=== PATIENT | female | born 1965 | race Caucasian/White ===

== ENCOUNTER 2021-08-25 21:57 | Inpatient (IN) | payer BC, SELFPAY ==
--- NOTE | ~2021-08-25 | CT_ITS ---
EXAMINATION: CT SOFT TISSUE NECK WITH CONTRAST CLINICAL INFORMATION: Indurated chain/neck status post incision drainage COMPARISON: None TECHNIQUE: Following the intravenous administration of 100 mL of Omnipaque 350 intravenous contrast, helical imaging was performed in the axial plane with generation of coronal and sagittal reformatted images. This CT examination was performed using dose optimization techniques as appropriate, variously including the following: *Automated exposure control *Adjustment of mA and/or kV according to patient size (this includes techniques or standardized protocols for targeted exams where dose is matched to indication/reason for exam; i.e. extremities or head) *Use of iterative reconstruction technique DLP: 596 mGy-cm FINDINGS: There is soft tissue swelling anterior to the left mental protuberance of the mandible, where there is associated incision. Subjacent to the incision, is a collection of fluid or phlegmon anterior to the mental protuberance measuring 1.9 x 1.1 x 1.1 cm. The underlying mandible shows no periosteal reaction, cortical destruction or intramedullary lucency or sclerosis to suggest osteomyelitis. Adjacent reactive submental lymph node measures 8 mm short axis. No cervical lymphadenopathy by size criteria. The parotid glands are homogeneous in attenuation. The submandibular glands are normal. No contour abnormality or pathologic enhancement is seen within the oral cavity or pharyngeal mucosal space. The laryngeal structures are normal. The parapharyngeal fat is preserved. The carotid sheath vasculature opacify normally. No extra mucosal soft tissue mass. No retropharyngeal fluid collection is seen. The thyroid gland is normal. The superior mediastinum is unremarkable. The lung apices are clear. The mastoid air cells and visualized portions of the paranasal sinuses are well-aerated. The temporomandibular joints are normal. No periapical disease is identified. No osseous abnormalities are seen. The imaged portions of the brain parenchyma are unremarkable. CT/CT soft tissue neck w con IMPRESSION: There is soft tissue swelling and a small abscess or phlegmon immediately anterior to the mental protuberance of the mandible, underlying the patient's incision in this location. No evidence of osteomyelitis. No deep space infection.
[2021-08-25 22:30] VITALS: BP 154/75; PULSE 91; RESP 18; TEMP 37.1; O2SAT 98; BMI 29.9
[2021-08-26] VITALS (14 sets, daily range): BP systolic 142–200; BP diastolic 81–112; PULSE 85–99; RESP 16–20; TEMP 36–37.1; O2SAT 97–98
--- NOTE | 2021-08-26 | ECG_ITS ---
Test Reason : QT CHECK Blood Pressure : / mmHG Vent. Rate : 096 BPM Atrial Rate : 096 BPM P-R Int : 168 ms QRS Dur : 096 ms QT Int : 372 ms P-R-T Axes : 051 006 -03 degrees QTc Int : 469 ms Normal sinus rhythm Nonspecific ST abnormality Borderline ECG No previous ECGs available Referred By: Bakari Bentley Electronically Signed By:MICHEAL FERRELL MD
[2021-08-26] MEDS: Ketorolac Tromethamine 15 MG/ML VIAL 30 MG IVPUSH (02:32)
[2021-08-26] MEDS: Morphine Sulfate 4 MG/ML CARTRIDGE IVPUSH ×3 (02:33→07:55)
[2021-08-26] MEDS: cefTRIAXone sodium 1 GM in 0.9 % Sodium Chloride 50 ML IV (02:33)
[2021-08-26] MEDS: 0.9 % Sodium Chloride 1,000 ML 999 ML IV (02:34)
[2021-08-26 02:36] LABS: Basophils Percent Auto 0.2 % (0-2); Eosinophils Absolute Auto 0.1 X10*3/uL (0.0-0.4); Eosinophils Percent Auto 0.9 % (0-4); Hematocrit 37.7 % (37-47); Hemoglobin 12.5 g/dl (12.0-16.0); Imm Gran Abs Auto 0.07 X10*3/uL (0.00-0.03); Imm Gran Pct Auto 0.5 % (0.0-0.4); Lymphocytes Absolute Auto 1.7 X10*3/uL (1.2-4.9); Lymphocytes Percent Auto 11.3 % (20-40); MANUAL DIFF FLAG NO; Mean Corpuscular HGB Conc 33.2 g/dl (31.0-35.0); Mean Corpuscular Hemoglobin 31.8 pg (27.0-33.0); Mean Corpuscular Volume 95.9 fL (80-98); Monocytes Percent Auto 6.6 % (2-11); Neutrophils Percent Auto 80.5 % (45-73); Platelet Count 322 X10*3/uL (160-400); Red Blood Count 3.93 X10*6/uL (4.20-5.50); Red Cell Distribution Width 13.9 % (11.0-16.0); White Blood Count 14.9 X10*3/uL (4.8-10.8)
[2021-08-26 02:49] LABS: COVID-19 Test Negative (Negative)
[2021-08-26 02:49] LABS: Lactic Acid 0.7 mmol/L (0.5-2.0)
[2021-08-26 02:53] LABS: Alanine Aminotransferase 37 U/L (0-31); Albumin Level 4.1 g/dL (3.5-5.0); Alkaline Phosphatase 127 U/L (39-117); Anion Gap 13 (12-20); Aspartate Amino Transferase 29 U/L (5-31); Bilirubin Total 0.3 mg/dL (0.0-1.0); Blood Urea Nitrogen 9 mg/dL (9-16); C Reactive Protein 20.12 mg/dL (< or = 0.50); Calcium 9.5 mg/dL (8.4-10.2); Carbon Dioxide 23 mmol/L (22-29); Chloride 110 mmol/L (96-108); Creatinine Clr Calc Pharmacy 88.7; Estimated Glomerular Filt Rate > 60; Glucose Random 100 mg/dL (60-115); Sodium 142 mmol/L (135-145); Total Protein 6.6 g/dL (6.5-8.0)
[2021-08-26] MEDS: vancomycin HCL 1,000 MG in 0.9 % Sodium Chloride 250 ML 270 MG IV ×2 (03:10→13:11)
[2021-08-26] MEDS: Lidocaine HCl 1 % MPF 5 ML VIAL INFILTRATI ×2 (03:10)
[2021-08-26 03:14] LABS: Erythrocyte Sedimentation Rate 40 MM/HR (0-20)
--- NOTE | 2021-08-26 03:31 | ED_ITS ---
HPI - Extremity Problem General Chief complaint: Extremity Injury, Upper Stated complaint: Red Inflamed skin Time Seen by Provider: 08/26/21 01:44 Source: patient Mode of arrival: ambulatory Limitations: no limitations History of Present Illness HPI Narrative: 56-year-old female who presents emergency department for evaluation of cellulitis to her chin. The patient states she had a pimple on her chin that she popped and squeezed on , approximately 5 days prior to evaluation. She was seen in urgent care clinic and started on cephalexin. She states that her redness and swelling for chin is gotten progressively worse. She denied fever or chills but states that she has been feeling very fatigued. He denied myalgias or arthralgias. She denied chest pain, shortness of breath or cough. She denied headache, nausea, vomiting or weakness. She states that the pain in her chin is a constant, throbbing sensation which is 10/10 at its worst. Related Data Allergies Allergy/AdvReac Type Severity Reaction Status Date / Time No Known Allergies Allergy Unverified 08/01/20 19:26 [No Known Allergies*] Review of Systems Review of Systems: Yes all other systems are reviewed and are negative [facility] Past Medical History [facility] Narrative: Past medical history: Hypertension past surgical history: None. Social history: She denies tobacco use. She denies alcohol use. She occasionally smokes marijuana. Social History Social History Advance Directives: No Patient : No Physical Exam Vital Signs: Vital Signs: Last Vital Signs Temp 98.7 F 08/26/21 02:38 Pulse 87 08/26/21 06:09 Resp 16 08/26/21 06:09 BP 145/91 H 08/26/21 06:09 Pulse Ox 97 08/26/21 03:56 Body Mass Index 29.9 Const: General: cooperative and no acute distress Orientation/consciousness: oriented to person and oriented to place Limitations: no limitations HENMT: Other: The patient has a large area erythema and swelling of her chin measuring approximately 5 cm x 4 cm the air is purulent discharge coming from the skin, the skin is mainly indurated with a slight area of flocculence over the area that is draining pus. The erythema is warm to touch and does not starla with pressure. Ears: external ears normal General nose exam: Normal external nose present Mouth: Normal oral and palatal mucosa present Throat: Yes posterior oropharynx normal Eyes: General: appearance normal, both eyes and all related structures Pupils: Equal, round and reactive pupils present Neck: Neck: Yes normal visual inspection, Yes no lymphadenopathy, Yes trachea midline and Yes supple Chest: Chest palpation & inspection: normal inspection of the chest and normal palpation of entire chest wall Resp: Effort & Inspection: normal respiratory effort and able to speak in complete sentences Auscultation: clear to auscultation bilaterally Cardio: Rate: regular rate Rhythm: regular rhythm Heart sounds: S1 normal heart sound present, S2 normal heart sound present and no murmurs GI: Inspection: Yes normal to inspection Palpation (GI): Soft to palpation, nontender and no guarding Auscultation: normal bowel sounds : General: Yes no CVA tenderness Back/Spine/Pelvis: Back: no CVA tenderness Skin: General skin exam: no rashes or lesions noted Neuro: General: oriented to person and oriented to place Cranial nerves: Yes CN's II-XII intact bilaterally and Yes Equal, round and reactive pupils present Cognition (Neuro): normal cognition Motor exam (neuro): 5/5 motor strength present throughout Extrem: General: Yes normal to inspection Psych: Appearance: grossly normal Speech and movement: Normal speech and movement present Affect: normal affect Attitude: cooperative Thought process: Normal thought process present Thought content: Normal thought content present Course Course Course Narrative: 56-year-old female who presents emergency department for evaluation of cellulitis of the chin that occurred secondary to her popping a pimple on her chin 5 days prior . She was seen in urgent care clinic and started on cephalexin with no improvement of her symptoms. Vital signs reveal that she was afebrile, she was hypertensive with a blood pressure of 154/75. Examination did reveal significant cellulitis of her chin, mainly the areas indurated but there was a small area flocculence which I incised and drained, only small amount of a purulent material was expressed from the incised wound. I did explore the incised area with hemostats and was not able to get more pus out of the wound. I believe that the majority of the chin is indurated secondary to the cellulitis. The patient was treated with ceftriaxone 1 g IV and vancomycin 1000 mg IV. She did receive Toradol 30 mg IV and morphine 4 mg IV x2. I will discuss the patient's presentation with the covering hospitalist. 0521: I did discuss patient's presentation with the covering hospitalist, Dr. Bentley and the patient will be admitted to the hospital service. I will obtain a CT scan of the neck which will involve that stuart to make sure that there is no further abscess. 0724: CT scan of the neck including the chin revealed a small abscess or phlegmon immediately anterior to the mental protuberance of the mandible. I did discuss this with Dr. España our interventional radiologist and he states in general, he does not do procedures on the face. I discussed the patient's presentation with our on-call general surgeon, Dr. Gilliland. He evaluated the patient and felt that the collection of fluid may be reactionary and not purulence. He recommended that the patient be treated with IV antibiotics and he will follow the patient with the hospitalist determine if the patient needs surgical intervention if there is no improvement. I will discuss this with the covering hospitalist. MDM - Extremity (Nontraumatic) Lab Data Result diagrams: 08/26/21 02:25 08/26/21 02:25 Labs: Lab Results 08/26/21 08/26/21 08/26/21 Range/Units 02:25 02:25 02:25 WBC 14.9 H (4.8-10.8) X10*3/uL RBC 3.93 L (4.20-5.50) X10*6/uL Hgb 12.5 (12.0-16.0) g/dl Hct 37.7 (37-47) % MCV 95.9 (80-98) fL MCH 31.8 (27.0-33.0) pg MCHC 33.2 (31.0-35.0) g/dl RDW 13.9 (11.0-16.0) % Plt Count 322 (160-400) X10*3/uL MPV 9.0 L (9.4-12.3) fL Immature Gran % (Auto) 0.5 H (0.0-0.4) % Neut % (Auto) 80.5 H (45-73) % Lymph % (Auto) 11.3 L (20-40) % [place] % (Auto) 6.6 (2-11) % Eos % (Auto) 0.9 (0-4) % Baso % (Auto) 0.2 (0-2) % Lymph # (Auto) 1.7 (1.2-4.9) X10*3/uL [place] # (Auto) 1.0 (0.1-1.2) X10*3/uL Eos # (Auto) 0.1 (0.0-0.4) X10*3/uL Baso # (Auto) 0.0 (0.0-0.2) X10*3/uL Abs Immat Gran (auto) 0.07 H (0.00-0.03) X10*3/uL Absolute Neuts (auto) 12.0 H (2.0-8.3) X10*3/uL Absolute Nucleated RBC 0.000 (0.0-0.012) X10*3/uL Nucleated RBC % (auto) 0.0 (0.0-0.2) /100WBC ESR (0-20) MM/HR Sodium 142 (135-145) mmol/L Potassium 4.0 (3.3-5.1) mmol/L Chloride 110 H (96-108) mmol/L Carbon Dioxide 23 (22-29) mmol/L Anion Gap 13 (12-20) BUN 9 (9-16) mg/dL Creatinine 0.73 (0.5-1.4) mg/dL Estim Creat Clear Calc 88.7 Estimated GFR > 60 Random Glucose 100 (60-115) mg/dL Lactic Acid 0.7 (0.5-2.0) mmol/L Calcium 9.5 (8.4-10.2) mg/dL Total Bilirubin 0.3 (0.0-1.0) mg/dL AST 29 (5-31) U/L ALT 37 H (0-31) U/L Alkaline Phosphatase 127 H (39-117) U/L C-Reactive Protein 20.12 H (< or = 0.50) mg/dL Total Protein 6.6 (6.5-8.0) g/dL Albumin 4.1 (3.5-5.0) g/dL COVID-19 ([place]) (Negative) COVID-19 Clin Com 08/26/21 08/26/21 Range/Units 02:26 02:26 WBC (4.8-10.8) X10*3/uL RBC (4.20-5.50) X10*6/uL Hgb (12.0-16.0) g/dl Hct (37-47) % MCV (80-98) fL MCH (27.0-33.0) pg MCHC (31.0-35.0) g/dl RDW (11.0-16.0) % Plt Count (160-400) X10*3/uL MPV (9.4-12.3) fL Immature Gran % (Auto) (0.0-0.4) % Neut % (Auto) (45-73) % Lymph % (Auto) (20-40) % [place] % (Auto) (2-11) % Eos % (Auto) (0-4) % Baso % (Auto) (0-2) % Lymph # (Auto) (1.2-4.9) X10*3/uL [place] # (Auto) (0.1-1.2) X10*3/uL Eos # (Auto) (0.0-0.4) X10*3/uL Baso # (Auto) (0.0-0.2) X10*3/uL Abs Immat Gran (auto) (0.00-0.03) X10*3/uL Absolute Neuts (auto) (2.0-8.3) X10*3/uL Absolute Nucleated RBC (0.0-0.012) X10*3/uL Nucleated RBC % (auto) (0.0-0.2) /100WBC ESR 40 H (0-20) MM/HR Sodium (135-145) mmol/L Potassium (3.3-5.1) mmol/L Chloride (96-108) mmol/L Carbon Dioxide (22-29) mmol/L Anion Gap (12-20) BUN (9-16) mg/dL Creatinine (0.5-1.4) mg/dL Estim Creat Clear Calc Estimated GFR Random Glucose (60-115) mg/dL Lactic Acid (0.5-2.0) mmol/L Calcium (8.4-10.2) mg/dL Total Bilirubin (0.0-1.0) mg/dL AST (5-31) U/L ALT (0-31) U/L Alkaline Phosphatase (39-117) U/L C-Reactive Protein (< or = 0.50) mg/dL Total Protein (6.5-8.0) g/dL Albumin (3.5-5.0) g/dL COVID-19 (GER[place]) Negative (Negative) COVID-19 Clin Com See Note Procedures Abscess I/D Site: face (Change) Local Anesthetic: lidocaine 1% Amount of anesthesia used (mL): 10 Technique: incised with blade Amount of fluid expressed (mL): 5 Sent for culture/gram staining?: Yes Irrigation: No Packing used?: [email or web address] Discharge Plan Discharge Clinical Impression: Cellulitis and abscess of face, Encounter for incision and drainage procedure Patient Disposition: Admitted As Inpatient
--- NOTE | 2021-08-26 05:36 | PC.NURSE ---
pt neck and jaw have been marked with a skin marker. redness and swelling have been improving slowly. pt lip did expand to the entire lower lip swelling but now is at half, greater on the left side of the mouth. pt is able to swallow and manage her airway with no difficulty. pt made aware of the need for a ct of her face.
[2021-08-26] MEDS: iohexoL 350 MG/ML 100 ML INFUS..BTL 60 ML IV (05:50)
--- NOTE | 2021-08-26 08:55 | PM.CNGS ---
History of Present Illness Consult details Consult date: 08/26/21 Narrative: 56-year-old female patient presenting with pain, swelling, and redness of the chin. This apparently started as a small pustule which she picked it gradually increased in size and pain. She presents to the emergency department and was noted to have an area of redness located at the chin. Incision and drainage procedure was performed by the emergency department physician. A small amount of purulent discharge was evacuated. Subsequent CT of the head was suggestive of an underlying abscess located over the chin to below the incision. Surgical consultation was requested for possible repeat incision and Drainage. Review of Systems Review of Systems: Yes all other systems are reviewed and are negative Constitutional: Constitutional: Reports chills and Reports fever(s) Eyes: Eyes: Reports no additional eye complaints ENT: Reports as per HPI Cardiovascular: Cardiovascular: Reports no additional cardiovascular complaints Respiratory: Respiratory: Reports no additional respiratory complaints Gastrointestinal: Gastrointestinal: Reports no additional gastrointestinal complaints PMFSH Social History Social History Advance Directives: No Patient : No Meds Allergies Allergy/AdvReac Type Severity Reaction Status Date / Time No Known Allergies Allergy Unverified 08/01/20 19:26 [No Known Allergies*] Physical Exam Vital Signs: Vital Signs: Last Vital Signs Temp 98.7 F 08/26/21 02:38 Pulse 87 08/26/21 06:09 Resp 16 08/26/21 06:09 BP 145/91 H 08/26/21 06:09 Pulse Ox 97 08/26/21 03:56 Body Mass Index 29.9 Const: General: healthy appearing, comfortable and no acute distress Nutritional Appearance: well nourished Orientation/consciousness: patient oriented x3 Limitations: no limitations HENMT: Face images: 1. area of swelling and redness midline chin, site is very inflamed but no definite fluctuance is palpable. No evidence of undrained abscess. Neck: Neck: Yes no lymphadenopathy Resp: Effort & Inspection: normal respiratory effort Auscultation: clear to auscultation bilaterally GI: Inspection: Yes normal to inspection Skin: Other: abscess as noted above she will, no other suspicious lesions Neuro: General: patient oriented x3 Extrem: General: Yes no clubbing, cyanosis or edema Results Labs Result diagrams: 08/26/21 02:25 08/26/21 02:25 Labs: Abnormal lab results 10/11/0408/26/21 08/26/21 Range/Units 02:25 02:25 02:26 WBC 14.9 H (4.8-10.8) X10*3/uL RBC 3.93 L (4.20-5.50) X10*6/uL MPV 9.0 L (9.4-12.3) fL Immature Gran % (Auto) 0.5 H (0.0-0.4) % Neut % (Auto) 80.5 H (45-73) % Lymph % (Auto) 11.3 L (20-40) % Abs Immat Gran (auto) 0.07 H (0.00-0.03) X10*3/uL Absolute Neuts (auto) 12.0 H (2.0-8.3) X10*3/uL ESR 40 H (0-20) MM/HR Chloride 110 H (96-108) mmol/L ALT 37 H (0-31) U/L Alkaline Phosphatase 127 H (39-117) U/L C-Reactive Protein 20.12 H (< or = 0.50) mg/dL Short CBC 08/26/21 Range/Units 02:25 WBC 14.9 H (4.8-10.8) X10*3/uL Hgb 12.5 (12.0-16.0) g/dl Hct 37.7 (37-47) % Plt Count 322 (160-400) X10*3/uL BMP 08/26/21 02:25 Sodium 142 Potassium 4.0 Chloride 110 H Carbon Dioxide 23 BUN 9 Creatinine 0.73 Calcium 9.5 Liver Function 08/26/21 Range/Units 02:25 Total Bilirubin 0.3 (0.0-1.0) mg/dL AST 29 (5-31) U/L ALT 37 H (0-31) U/L Alkaline Phosphatase 127 H (39-117) U/L Albumin 4.1 (3.5-5.0) g/dL All other labs normal. Assessment and Plan (1) Encounter for incision and drainage procedure: Status: Acute (2) Cellulitis and abscess of face: Status: Acute are quite paranoid 56-year-old female patient presenting with a abscess of the chin status post incision and drainage. Patient is being admitted to the hospital service for IV antibiotics. It does appear that any further incision and drainage is required at this time although I will continue to monitor during her hospitalization. If there is no improvement with the IV antibiotics 1 option would include operative exploration in the OR. I discussed this with the patient she agrees with the plan. Procedures Date of Service Date of Service: 08/26/21
[2021-08-26] MEDS: Magnesium Hydrox/Alum Hydrox 30 ML ORAL.SUSP PO (10:56)
--- NOTE | 2021-08-26 11:21 | PHA.PROG ---
Admission Date/Time: Indication: Skin Infection Weight in k.647 kg Adjusted body weight in K.85 Mather body weight in K Serum Creatinine - Last 168 Hours 08/26/21 02:25 Creatinine 0.73 Estimated CrCl and GFR - Last 168 Hours 08/26/21 02:25 Estim Creat Clear Calc 88.7 Estimated GFR > 60 Vancomycin Loading Dose: N/A Current Vancomycin Dosing Regimen: 1000 mg Q12H Date and Time for next Vancomycin Level to be drawn: 08/27 @ 1100 Pharmacist Comments on Vancomycin Plan: Vanco 1000 mg given in the ED 08/26 @ 0310. Given second dose of 1000 mg in 8 hr at 1200 to create a LD. Start 1000 mg on 08/27 @ 1200. Expected AUC 480 with a trough of 15 Troguh will be drawn prior to 4th dose Pharmacy will monitor SCr daily, and adjust if necessary Mirna David, Leticia Vancomycin dosing will take advantage of [employer] as a clinical decision support tool that uses Bayesian modeling to calculate individual patient's pharmacokinetic parameters and forecast the patient's drug concentration time course with the target goal AUC 24 range of 400 - 600 mg/L/hr.
[2021-08-26] MEDS: Piperacillin Sodium/Tazobactam 3.375 GM in 0.9 % Sodium Chloride 50 ML IV ×2 (11:33→18:47)
--- NOTE | 2021-08-26 11:51 | P.HPHOSP_ITS ---
History of Present Illness Date of Service: 08/26/21 56-year-old female who presents emergency department for evaluation of cellulitis to her chin.? The patient states she had a pimple on her chin that she popped and squeezed on , approximately 5 days prior to evaluation.? She was seen in urgent care clinic and started on cephalexin.? She states that her redness and swelling for chin is gotten progressively worse.? She denied f ever or chills but states that she has been feeling very fatigued.? He denied myalgias or arthralgias.? She denied chest pain, shortness of breath or cough.? She denied headache, nausea, vomiting or weakness.? She states that the pain in her chin is a constant, throbbing sensation which is 10/10 at its worst.? ER course: White count 14 9; I and D done by ER MD. started on IV ceftriaxone and vanco mycin. Morphine for pain management Review of Systems Review of Systems: Denies chest pain Denies shortness of breath Denies nausea vomiting diarrhea PMFSH Pertinent family history: . Social History Advance Directives: No Patient : No Meds Allergies Allergy/AdvReac Type Severity Reaction Status Date / Time No Known Allergies Allergy Unverified 08/01/20 19:26 [No Known Allergies*] Active Medications: Current Medications Enoxaparin Sodium (Enoxaparin Sodium 40 Mg/0.4 Ml Syringe) 40 mg SUBCUT Q24H CURRY Piperacillin Sod/Tazobactam (Sod 3.375 gm/ Sodium Chloride) 50 mls @ 100 mls/hr IV RQ6H CURRY Last Admin: 08/26/21 11:33 Dose: 100 mls/hr Documented by: Vancomycin HCl 1,000 mg/ (Sodium Chloride) 270 mls @ 270 mls/hr IV Q12H CURRY Magnesium Hydroxide (Milk Of Magnesia 30 Ml Oral.Susp) 30 ml PO DAILY PRN PRN Reason: Constipation Melatonin (Melatonin 3 Mg Tablet) 6 mg PO BEDTIME PRN PRN Reason: Insomnia Morphine Sulfate (Morphine Sulfate 4 Mg/Ml Cartridge) 4 mg IVPUSH Q4H PRN; Protocol PRN Reason: Pain, Severe (Pain Scale 7-10) Oxycodone HCl (Oxycodone Hcl Immed Release 5 Mg Tablet) 5 mg PO Q6H PRN PRN Reason: Pain, Severe (Pain Scale 7-10) Pharmacy Consult (Consult Rx Vancomycin Dosing) 1 each MISCELLANE DAILY PRN PRN Reason: Consult order Sodium Chloride (0.9 % Sodium Chloride Flush 3 Ml Syringe) 3 ml IVFLUSH QSHIFT CURRY Physical Exam Vital Signs and Narrative: Vital Signs: Last Vital Signs Temp 98.7 F 08/26/21 02:38 Pulse 87 08/26/21 06:09 Resp 16 08/26/21 06:09 BP 145/91 H 08/26/21 06:09 Pulse Ox 97 08/26/21 03:56 Body Mass Index 29.9 Const: Other: Awake alert oriented x3 no acute distress HENMT: Other: 5 x 4 cm erythematous area to touch in; status post I&D drain in. Erythema somewhat improved since drainage given marked line Resp: Other: Clear to auscultation all cole. No rales rhonchi wheezes Cardio: Other: No S4; positive S1-S2; no S3 murmurs rubs gallops GI: Other: Soft nontender nondistended normoactive bowel sounds. There is no peritoneal signs Neuro: Other: Cranial nerves 2-12 grossly intact as tested. Motor 5/5 all extremities sensation intact cognition is normal Extrem: Other: No edema bilaterally Results Labs CBC and Chem 7: 08/26/21 02:25 08/26/21 02:25 Labs: Laboratory Results - last 24 hr 08/26/21 08/26/21 08/26/21 02:25 02:25 02:25 MCV 95.9 MCH 31.8 MCHC 33.2 RDW 13.9 Plt Count 322 MPV 9.0 L Immature Gran % (Auto) 0.5 H Neut % (Auto) 80.5 H Lymph % (Auto) 11.3 L [facility] % (Auto) 6.6 Eos % (Auto) 0.9 Baso % (Auto) 0.2 Lymph # (Auto) 1.7 [facility] # (Auto) 1.0 Eos # (Auto) 0.1 Baso # (Auto) 0.0 Abs Immat Gran (auto) 0.07 H Absolute Neuts (auto) 12.0 H Absolute Nucleated RBC 0.000 Nucleated RBC % (auto) 0.0 ESR Anion Gap 13 Estim Creat Clear Calc 88.7 Estimated GFR > 60 Random Glucose 100 Lactic Acid 0.7 Calcium 9.5 Total Bilirubin 0.3 AST 29 ALT 37 H Alkaline Phosphatase 127 H C-Reactive Protein 20.12 H Total Protein 6.6 Albumin 4.1 COVID-19 ([place]) COVID-19 Clin Com 08/26/21 08/26/21 02:26 02:26 MCV MCH MCHC RDW Plt Count MPV Immature Gran % (Auto) Neut % (Auto) Lymph % (Auto) [facility] % (Auto) Eos % (Auto) Baso % (Auto) Lymph # (Auto) [facility] # (Auto) Eos # (Auto) Baso # (Auto) Abs Immat Gran (auto) Absolute Neuts (auto) Absolute Nucleated RBC Nucleated RBC % (auto) ESR 40 H Anion Gap Estim Creat Clear Calc Estimated GFR Random Glucose Lactic Acid Calcium Total Bilirubin AST ALT Alkaline Phosphatase C-Reactive Protein Total Protein Albumin COVID-19 ([place]) Negative COVID-19 Clin Com See Note Imaging Radiologist's Impressions: Impressions Soft Tissue Neck CT 08/26/21 05:17 IMPRESSION: There is soft tissue swelling and a small abscess or phlegmon immediately anterior to the mental protuberance of the mandible, underlying the patient's incision in this location. No evidence of osteomyelitis. No deep space infection. Assessment and Plan (1) Cellulitis and abscess of face: Status: Acute 56-year-old female presents with cellulitis on chin. States she had a pimple on her chin which she popped 5 days ago. She was seen after 2 days in urgent care and placed on Keflex. She states that her redness and swelling continued to worsen in the absence of fever and chills. She presented to the emergency room (see initial photo) with same; I and D was done and erythema was marked with a marker. At this point in time shoulder be admitted for IV therapy and pain control 1. Facial cellulitis IV Zosyn/vancomycin as ordered. Will prescribe oxycodone for pain with morphine for breakthrough. Appreciate surgical consult; no indication for further drainage. Per note will follow if no improvement on IV antibiotics question OR for exploration and drainage. 2. Hypertension Continue outpatient therapies and adjust as indicated 3. GERD Continue omeprazole 4. DVT prophylaxis: Lovenox Full code Quality Stroke Does the patient have a stroke diagnosis?: No VTE Prior VTE?: No VTE Risk Level:: Medical - moderate - high VTE Device Contraindication: Treatment Not Indicated VTE Drug Contraindication: N/A - Med Ordered
--- NOTE | 2021-08-26 12:15 | PHA.MEDREC ---
Pharmacy Consult ? Medication Reconciliation Pharmacy has completed the medication reconciliation. There are no remarkable issues for provider's attention. Mirna David, TraeD
[2021-08-26] MEDS: oxyCODONE HCl Immed Release 5 MG TABLET PO (13:14)
[2021-08-26] MEDS: ondansetron HCL 4 MG/2 ML VIAL IVPUSH (13:33)
--- NOTE | 2021-08-26 13:34 | PC.NURSE ---
pt vomiting, IV zofran given, pain medication held at this time.
--- NOTE | 2021-08-26 18:53 | PC.NURSE ---
pt is nauseous/vomiting, diaphoretic with chills, HR in the 90s, and BP 199/112. Oral temp is 98.5. Pt's redness on her chin is outside of the markings done last night. MD fuentes chapa texted for orders.
--- NOTE | 2021-08-26 20:38 | PC.NURSE ---
This nurse took over care of patient at 1900, Dr. holden was notified that the patient did not get her lisopril by previous nurse, no new orders given at this time. will contniue to monitor.
[2021-08-26] MEDS: lisinopriL 10 MG TABLET PO (21:33)
[2021-08-26] MEDS: Cyclobenzaprine HCl 10 MG TABLET PO (21:33)
--- NOTE | 2021-08-26 21:34 | PC.NURSE ---
patient alert to self, meds crushed given in pudding, nicole cath patient draining, will continue to monitor.
--- NOTE | 2021-08-26 21:35 | PC.NURSE ---
patient medicated per order
--- NOTE | 2021-08-26 21:55 | PC.NURSE ---
patient c/o facial pain but is refusing pain meds at this time.
--- NOTE | 2021-08-26 22:26 | PC.NURSE ---
report given, repeat vitals being obtained and pt to be transported by tech to the floor
[2021-08-27] MEDS: Piperacillin Sodium/Tazobactam 3.375 GM in 0.9 % Sodium Chloride 50 ML IV ×5 (00:18→23:07)
[2021-08-27] MEDS: ondansetron HCL 4 MG/2 ML VIAL IVPUSH ×2 (00:48→12:24)
[2021-08-27] MEDS: 0.9 % Sodium Chloride Flush 3 ML SYRINGE IVFLUSH ×4 (01:15→23:08)
[2021-08-27] MEDS: vancomycin HCL 1,000 MG in 0.9 % Sodium Chloride 250 ML 270 MG IV (01:15)
[2021-08-27 03:44] VITALS: BP 140/67; PULSE 97; RESP 18; TEMP 37.2; O2SAT 96
[2021-08-27] MEDS: Omeprazole 20 MG CAPSULE.DR PO ×2 (05:50→18:28)
[2021-08-27] MEDS: Acetaminophen 325 MG TABLET 650 MG PO ×2 (05:50→21:47)
[2021-08-27 06:53] LABS: MANUAL DIFF FLAG NO
[2021-08-27 06:57] LABS: Basophils Percent Auto 0.2 % (0-2); Eosinophils Absolute Auto 0.1 X10*3/uL (0.0-0.4); Eosinophils Percent Auto 0.5 % (0-4); Hematocrit 35.4 % (37-47); Hemoglobin 11.8 g/dl (12.0-16.0); Imm Gran Abs Auto 0.03 X10*3/uL (0.00-0.03); Imm Gran Pct Auto 0.3 % (0.0-0.4); Lymphocytes Absolute Auto 1.2 X10*3/uL (1.2-4.9); Lymphocytes Percent Auto 12.1 % (20-40); Mean Corpuscular HGB Conc 33.3 g/dl (31.0-35.0); Mean Corpuscular Hemoglobin 31.6 pg (27.0-33.0); Mean Corpuscular Volume 94.7 fL (80-98); Mean Platelet Volume 8.8 fL (9.4-12.3); Monocytes Absolute Auto 0.5 X10*3/uL (0.1-1.2); Monocytes Percent Auto 5.4 % (2-11); Neutrophils Absolute Auto 8.1 X10*3/uL (2.0-8.3); Neutrophils Percent Auto 81.5 % (45-73); Platelet Count 292 X10*3/uL (160-400); Red Blood Count 3.74 X10*6/uL (4.20-5.50); Red Cell Distribution Width 13.6 % (11.0-16.0)
[2021-08-27 07:08] VITALS: BP 145/90; PULSE 95; RESP 17; TEMP 36.4; O2SAT 98
[2021-08-27 07:15] LABS: Anion Gap 14 (12-20); Blood Urea Nitrogen 8 mg/dL (9-16); Carbon Dioxide 24 mmol/L (22-29); Chloride 106 mmol/L (96-108); Creatinine Clr Calc Pharmacy 109.7; Estimated Glomerular Filt Rate > 60; Glucose Random 107 mg/dL (60-115); Potassium 3.7 mmol/L (3.3-5.1); Sodium 140 mmol/L (135-145)
[2021-08-27 07:35] LABS: Calcium 8.6 mg/dL (8.4-10.2)
[2021-08-27] MEDS: lisinopriL 10 MG TABLET PO (08:30)
[2021-08-27] MEDS: Escitalopram Oxalate 10 MG TABLET PO (08:30)
[2021-08-27 11:41] LABS: Creatinine Clr Calc Pharmacy 109.7; Estimated Glomerular Filt Rate > 60
[2021-08-27 11:42] LABS: Vancomycin Trough 5.5 mcg/mL (10.0-20.0)
[2021-08-27 11:43] VITALS: BP 180/110; PULSE 95; RESP 19; TEMP 37; O2SAT 96
--- NOTE | 2021-08-27 12:02 | HO.PM.IMPN ---
Subjective Subjective Date of Service: 08/27/21 Interval History: cc: chin erythema, pain, swelling interval history: some drainage. still painful and erythematous Cardiovascular Cardiovascular: Reports no additional cardiovascular complaints Respiratory Respiratory: Reports no additional respiratory complaints Physical Exam Vital Signs: Vital Signs: Last Vital Signs Temp 98.6 F 08/27/21 11:43 Pulse 95 08/27/21 11:43 Resp 19 08/27/21 11:43 BP 180/110 H 08/27/21 11:43 Pulse Ox 96 08/27/21 11:43 Body Mass Index 29.9 General: AO X 3, no acute distress Resp: CTA bilateral, no accessory muscles used CVS: S1,S2,RRR GI: soft, non tender, non distended Neuro: motor grossly intact, alert Psych: appropriate affect, appropriate insight skin: chin ertyhematous, swollen, prulent drainage Objective Data Active Medications Cyclobenzaprine HCl (Cyclobenzaprine Hcl 10 Mg Tablet) 10 mg PO BEDTIME [facility] Last Admin: 08/26/21 21:33 Dose: 10 mg Documented by: JOSE ANTONIO Enoxaparin Sodium (Enoxaparin Sodium 40 Mg/0.4 Ml Syringe) 40 mg SUBCUT Q24H [facility] Last Admin: 08/26/21 13:34 Dose: Not Given Documented by: HONG Non-Admin Reason: Patient Refused Escitalopram Oxalate (Escitalopram Oxalate 10 Mg Tablet) 10 mg PO DAILY [facility] Last Admin: 08/27/21 08:30 Dose: 10 mg Documented by: BERNABE Piperacillin Sod/Tazobactam (Sod 3.375 gm/ Sodium Chloride) 50 mls @ 100 mls/hr IV RQ6H [facility] Last Infusion: 08/27/21 11:47 Dose: 100 mls/hr Documented by: BERNABE Vancomycin HCl 1,500 mg/ (Sodium Chloride) 500 mls @ 333.333 mls/hr IV Q12H [facility] Lisinopril (Lisinopril 10 Mg Tablet) 10 mg PO DAILY [facility]; Protocol Last Admin: 08/27/21 08:30 Dose: 10 mg Documented by: BERNABE Magnesium Hydroxide (Milk Of Magnesia 30 Ml Oral.Susp) 30 ml PO DAILY PRN PRN Reason: Constipation Melatonin (Melatonin 3 Mg Tablet) 6 mg PO BEDTIME PRN PRN Reason: Insomnia Morphine Sulfate (Morphine Sulfate 4 Mg/Ml Cartridge) 4 mg IVPUSH Q4H PRN; Protocol PRN Reason: Pain, Severe (Pain Scale 7-10) Omeprazole (Omeprazole 20 Mg Capsule.Dr) 20 mg PO BID@0630,1630 [facility] Last Admin: 08/27/21 05:50 Dose: 20 mg Documented by: MIMI Ondansetron HCl (Ondansetron Hcl 4 Mg/2 Ml Vial) 4 mg IVPUSH Q6H PRN PRN Reason: nausea Oxycodone HCl (Oxycodone Hcl Immed Release 5 Mg Tablet) 5 mg PO Q6H PRN PRN Reason: Pain, Severe (Pain Scale 7-10) Last Admin: 08/26/21 13:14 Dose: 5 mg Documented by: HONG Pharmacy Consult (Consult Rx Vancomycin Dosing) 1 each MISCELLANE DAILY PRN PRN Reason: Consult order Sodium Chloride (0.9 % Sodium Chloride Flush 3 Ml Syringe) 3 ml IVFLUSH [facility] Last Admin: 08/27/21 08:32 Dose: 3 ml Documented by: BERNABE Labs CBC & Chem 7: 08/27/21 06:43 08/27/21 11:03 Labs: Laboratory Results - last 24 hr 08/27/21 08/27/21 08/27/21 06:43 06:43 11:03 MCV 94.7 MCH 31.6 MCHC 33.3 RDW 13.6 Plt Count 292 MPV 8.8 L Immature Gran % (Auto) 0.3 Neut % (Auto) 81.5 H Lymph % (Auto) 12.1 L [place] % (Auto) 5.4 Eos % (Auto) 0.5 Baso % (Auto) 0.2 Lymph # (Auto) 1.2 [place] # (Auto) 0.5 Eos # (Auto) 0.1 Baso # (Auto) 0.0 Abs Immat Gran (auto) 0.03 Absolute Neuts (auto) 8.1 Absolute Nucleated RBC 0.000 Nucleated RBC % (auto) 0.0 Anion Gap 14 Estim Creat Clear Calc 109.7 109.7 Estimated GFR > 60 > 60 Random Glucose 107 Calcium 8.6 D Vancomycin Trough 08/27/21 11:03 MCV MCH MCHC RDW Plt Count MPV Immature Gran % (Auto) Neut % (Auto) Lymph % (Auto) [place] % (Auto) Eos % (Auto) Baso % (Auto) Lymph # (Auto) [place] # (Auto) Eos # (Auto) Baso # (Auto) Abs Immat Gran (auto) Absolute Neuts (auto) Absolute Nucleated RBC Nucleated RBC % (auto) Anion Gap Estim Creat Clear Calc Estimated GFR Random Glucose Calcium Vancomycin Trough 5.5 L Microbiology Microbiology Results: Microbiology 08/26/21 02:25 Blood Culture - Preliminary Blood - Venous No growth after 24 hours. 08/26/21 02:25 Blood Culture - Preliminary Blood - Venous No growth after 24 hours. 08/26/21 03:22 Gram Stain - Final Abscess Facial Assessment and Plan (1) Cellulitis and abscess of face: Status: Acute Assessment and Plan: 56-year-old female presented with cellulitis on chin.? States she had a pimple on her chin which she popped 5 days ptp.? She was seen after 2 days in urgent care and placed on Keflex.? She stated that her redness and swelling continued to worsen in the absence of fever and chills.? She presented to the emergency room (see initial photo) with same; I and D was done and erythema was marked with a marker.? admitted for IV therapy and pain control Facial cellulitis/abscess continue IV vanc, zosyn, pain control surgery following in case further drainage in OR required, follow up cultures, monitor vanc trough Hypertension lisinopril, elevated currently but likely due to naseasu, monitor for now GERD omeprazole DVT prophylaxis:? Lovenox ? ? Full code Quality Stroke Does the patient have a stroke diagnosis?: No VTE Prior VTE?: No VTE Risk Level:: Medical - moderate - high VTE Device Contraindication: Treatment Not Indicated VTE Drug Contraindication: N/A - Med Ordered
[2021-08-27] MEDS: vancomycin HCL 1,500 MG in 0.9 % Sodium Chloride 500 ML 333.33 MG IV ×2 (12:24→23:07)
[2021-08-27] MEDS: Enoxaparin Sodium 40 MG/0.4 ML SYRINGE SUBCUT (12:24)
[2021-08-27 14:05] VITALS: BP 174/88
--- NOTE | 2021-08-27 14:11 | PC.NURSE ---
At 1200 bp of 180/[address] Hurtado. Pt had just finishe dose o zosyn, She c/o feeling nauseous also diaphoretic. Medicated with zofran with effect. bp at 1410 was 174/88 large cuff
[2021-08-27 15:13] VITALS: BP 179/98; PULSE 72; RESP 18; TEMP 36.4; O2SAT 96
--- NOTE | 2021-08-27 15:23 | MHC.CM.PN ---
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 D/C PLAN: HOME SELF-CARE, [facility] WILL DRIVE SELF HOME
[2021-08-27 19:07] VITALS: BP 176/99; PULSE 79; RESP 18; TEMP 36.5; O2SAT 95
[2021-08-27] MEDS: Cyclobenzaprine HCl 10 MG TABLET PO (21:46)
[2021-08-27] MEDS: Melatonin 3 MG TABLET 6 MG PO (21:47)
[2021-08-28] VITALS (8 sets, daily range): BP systolic 153–193; BP diastolic 80–108; PULSE 77–92; RESP 14–18; TEMP 36.1–36.9; O2SAT 92–96
[2021-08-28] MEDS: Ketorolac Tromethamine 15 MG/ML VIAL IVPUSH (04:55)
[2021-08-28] MEDS: ondansetron HCL 4 MG/2 ML VIAL IVPUSH ×2 (04:55→12:04)
[2021-08-28] MEDS: Piperacillin Sodium/Tazobactam 3.375 GM in 0.9 % Sodium Chloride 50 ML IV (04:56)
[2021-08-28] MEDS: Omeprazole 20 MG CAPSULE.DR PO ×2 (04:56→15:45)
--- NOTE | 2021-08-28 06:05 | MHC.PIE ---
P: patient c/o headache & face pain, mild in nature - requesting tylenol. Does not want opiates. Patient chin bruised / scabbed. I: Dr Bentley made aware - ordered one time dose toradol - given to patient @ 8038 E: Patient reports medicated w/ good affect. Able to rest.
[2021-08-28 06:17] LABS: Hematocrit 35.4 % (37-47); Hemoglobin 11.8 g/dl (12.0-16.0); Mean Corpuscular HGB Conc 33.3 g/dl (31.0-35.0); Mean Corpuscular Hemoglobin 31.5 pg (27.0-33.0); Mean Corpuscular Volume 94.4 fL (80-98); Mean Platelet Volume 8.8 fL (9.4-12.3); Platelet Count 303 X10*3/uL (160-400); Red Blood Count 3.75 X10*6/uL (4.20-5.50); Red Cell Distribution Width 13.3 % (11.0-16.0); White Blood Count 8.9 X10*3/uL (4.8-10.8)
[2021-08-28 07:12] LABS: Anion Gap 16 (12-20); Blood Urea Nitrogen 13 mg/dL (9-16); Carbon Dioxide 23 mmol/L (22-29); Chloride 109 mmol/L (96-108); Creatinine Clr Calc Pharmacy 96.6; Estimated Glomerular Filt Rate > 60; Glucose Fasting 97 mg/dL (60-99); Potassium 3.9 mmol/L (3.3-5.1); Sodium 144 mmol/L (135-145)
[2021-08-28] MEDS: Escitalopram Oxalate 10 MG TABLET PO (08:52)
[2021-08-28] MEDS: lisinopriL 10 MG TABLET PO (08:52)
[2021-08-28] MEDS: Morphine Sulfate 4 MG/ML CARTRIDGE IVPUSH ×3 (08:55→23:22)
[2021-08-28] MEDS: vancomycin HCL 1,500 MG in 0.9 % Sodium Chloride 500 ML 333.33 MG IV ×2 (12:03→23:25)
[2021-08-28] MEDS: Enoxaparin Sodium 40 MG/0.4 ML SYRINGE SUBCUT (12:05)
--- NOTE | 2021-08-28 12:38 | P.PNIM_ITS ---
Subjective Subjective Date of Service: 08/28/21 Interval History: cc: chin erythema, pain, swelling interval history: still red and painful, but improved Cardiovascular Cardiovascular: Reports no additional cardiovascular complaints Respiratory Respiratory: Reports no additional respiratory complaints Physical Exam Vital Signs: Vital Signs: Last Vital Signs Temp 98.5 F 08/28/21 12:00 Pulse 83 08/28/21 12:00 Resp 18 08/28/21 12:00 BP 186/108 H 08/28/21 12:00 Pulse Ox 96 08/28/21 12:00 Body Mass Index 29.9 General: AO X 3, no acute distress Resp:? CTA bilateral, no accessory muscles used CVS: S1,S2,RRR GI: soft, non tender, non distended Neuro:? motor grossly intact, alert Psych: appropriate affect, appropriate insight? skin: chin ertyhematous, swollen, prulent drainage Objective Data Active Medications Cyclobenzaprine HCl (Cyclobenzaprine Hcl 10 Mg Tablet) 10 mg PO BEDTIME [facility] Last Admin: 08/27/21 21:46 Dose: 10 mg Documented by: ALYSSA Enoxaparin Sodium (Enoxaparin Sodium 40 Mg/0.4 Ml Syringe) 40 mg SUBCUT Q24H [facility] Last Admin: 08/28/21 12:05 Dose: 40 mg Documented by: BERNABE Escitalopram Oxalate (Escitalopram Oxalate 10 Mg Tablet) 10 mg PO DAILY [facility] Last Admin: 08/28/21 08:52 Dose: 10 mg Documented by: BERNABE Vancomycin HCl 1,500 mg/ (Sodium Chloride) 500 mls @ 333.333 mls/hr IV Q12H [facility] Last Admin: 08/28/21 12:03 Dose: 333.33 mls/hr Documented by: BERNABE Lisinopril (Lisinopril 10 Mg Tablet) 10 mg PO DAILY [facility]; Protocol Last Admin: 08/28/21 08:52 Dose: 10 mg Documented by: BERNABE Magnesium Hydroxide (Milk Of Magnesia 30 Ml Oral.Susp) 30 ml PO DAILY PRN PRN Reason: Constipation Melatonin (Melatonin 3 Mg Tablet) 6 mg PO BEDTIME PRN PRN Reason: Insomnia Last Admin: 08/27/21 21:47 Dose: 6 mg Documented by: ALYSSA Morphine Sulfate (Morphine Sulfate 4 Mg/Ml Cartridge) 4 mg IVPUSH Q4H PRN; Protocol PRN Reason: Pain, Severe (Pain Scale 7-10) Last Admin: 08/28/21 08:55 Dose: 4 mg Documented by: BERNABE Omeprazole (Omeprazole 20 Mg Capsule.Dr) 20 mg PO BID@0630,1630 [facility] Last Admin: 08/28/21 04:56 Dose: 20 mg Documented by: ODILIA Ondansetron HCl (Ondansetron Hcl 4 Mg/2 Ml Vial) 4 mg IVPUSH Q6H PRN PRN Reason: nausea Last Admin: 08/28/21 12:04 Dose: 4 mg Documented by: BERNABE Oxycodone HCl (Oxycodone Hcl Immed Release 5 Mg Tablet) 5 mg PO Q6H PRN PRN Reason: Pain, Severe (Pain Scale 7-10) Last Admin: 08/26/21 13:14 Dose: 5 mg Documented by: HONG Pharmacy Consult (Consult Rx Vancomycin Dosing) 1 each MISCELLANE DAILY PRN PRN Reason: Consult order Sodium Chloride (0.9 % Sodium Chloride Flush 3 Ml Syringe) 3 ml IVFLUSH QSHIFT [facility] Last Admin: 08/28/21 10:38 Dose: Not Given Documented by: BERNABE Non-Admin Reason: IV Running Labs CBC & Chem 7: 08/28/21 06:02 08/28/21 06:02 Labs: Laboratory Results - last 24 hr 08/28/21 08/28/21 06:02 06:02 MCV 94.4 MCH 31.5 MCHC 33.3 RDW 13.3 Plt Count 303 MPV 8.8 L Absolute Nucleated RBC 0.000 Nucleated RBC % (auto) 0.0 Anion Gap 16 Estim Creat Clear Calc 96.6 Estimated GFR > 60 Fasting Glucose 97 Calcium 9.0 Microbiology Microbiology Results: Microbiology 08/26/21 03:22 Gram Stain - Final Abscess Facial Routine Culture - Final Methicillin Res Staph Aureus 08/26/21 02:25 Blood Culture - Preliminary Blood - Venous No growth after 48 hours. 08/26/21 02:25 Blood Culture - Preliminary Blood - Venous No growth after 48 hours. Assessment and Plan (1) Cellulitis and abscess of face: Status: Acute Assessment and Plan: 56-year-old female presented with cellulitis on chin.? States she had a pimple on her chin which she popped 5 days ptp.? She was seen after 2 days in urgent care and placed on Keflex.? She stated that her redness and swelling continued to worsen in the absence of fever and chills.? She presented to the emergency room (see initial photo) with same; I and D was done and erythema was marked with a marker.? admitted for IV therapy and pain control Facial cellulitis/abscess continue IV vanc growing MRSA, will dc zosyn likely eventuall bactrim on dc surgery appreciated, likely no need for further drainage monitor vanc trough Hypertension lisinopril, uncontrolled, will add amlodipine GERD omeprazole DVT prophylaxis:? Lovenox ? ? Full code Quality Stroke Does the patient have a stroke diagnosis?: No VTE Prior VTE?: No VTE Risk Level:: Medical - moderate - high VTE Device Contraindication: Treatment Not Indicated VTE Drug Contraindication: N/A - Med Ordered
[2021-08-28] MEDS: amLODIPine Besylate 10 MG TABLET PO (13:14)
[2021-08-28] MEDS: Nicotine 21 MG PATCH.TD24 TRANSDERMA (14:06)
[2021-08-28] MEDS: 0.9 % Sodium Chloride Flush 3 ML SYRINGE IVFLUSH ×2 (15:45→23:22)
[2021-08-28] MEDS: Acetaminophen 325 MG TABLET 650 MG PO (15:45)
[2021-08-28] MEDS: Cyclobenzaprine HCl 10 MG TABLET PO (20:08)
[2021-08-28] MEDS: Melatonin 3 MG TABLET 6 MG PO (20:09)
[2021-08-28 21:30] LABS: Vancomycin Trough 14.4 mcg/mL (10.0-20.0)
[2021-08-29 03:18] VITALS: BP 164/84; PULSE 88; RESP 17; TEMP 36.4; O2SAT 97
[2021-08-29 03:38] VITALS: RESP 17
[2021-08-29] MEDS: Morphine Sulfate 4 MG/ML CARTRIDGE IVPUSH (03:38)
[2021-08-29] MEDS: Omeprazole 20 MG CAPSULE.DR PO (05:44)
[2021-08-29 07:12] VITALS: BP 160/90; PULSE 83; RESP 18; TEMP 36.2; O2SAT 97
--- NOTE | 2021-08-29 08:41 | PM.DS ---
DS: Providers Provider Date of Service: 08/29/21 Date of admission: 08/26/21 11:45 Primary care physician: Unknown Physician DS: Diagnosis Discharge Diagnosis (1) Cellulitis and abscess of face: Status: Acute (2) HTN (hypertension): Status: Acute DS: Summary Hospital Course Hospital Course: patient was admitted for facial cellulitis and abscess. she was treated with broad spectrum antibiotics (vanc/zosyn) underwent I and D, abscess grew MRSA. chin pain, swelling and erythema slowly improved, she was followed by surgery who felt no further surgical intervention required at this time. she will be transistioned to bactrim for 7 more days. she was also noted to have uncontrolled htn, amlodipine 10mg daily has been added. Time Spent with Patient Time attestation: Total time spent providing and/or coordinating discharge services: Discharge coordination time: Greater than 30 minutes Quality: Stroke Does the patient have a stroke diagnosis?: No Physical Exam Vital Signs: Vital Signs: Last Vital Signs Temp 97.1 F 08/29/21 07:12 Pulse 83 08/29/21 07:12 Resp 18 08/29/21 07:12 BP 160/90 H 08/29/21 07:12 Pulse Ox 97 08/29/21 07:12 Body Mass Index 29.9 General: AO X 3, no acute distress Resp:? CTA bilateral, no accessory muscles used CVS: S1,S2,RRR GI: soft, non tender, non distended Neuro:? motor grossly intact, alert Psych: appropriate affect, appropriate insight? skin: chin ertyhematous, swollen, DS: Data Data Completed and Pending Labs on day of discharge: Laboratory Results - last 24 hr 08/28/21 20:50 Vancomycin Trough 14.4 Preliminary micro results at discharge 08/26/21 02:25 Blood Culture - Preliminary Blood - Venous No growth after 48 hours. 08/26/21 02:25 Blood Culture - Preliminary Blood - Venous No growth after 48 hours. Discharge Plan Discharge Patient Disposition: Home, Self-Care Discharge Diagnosis: facial cellulitis/abscess Referrals: Physician,Unknown J [Primary Care Provider] - 1 Week Discharge Medications: New amlodipine 10 mg Tablet 10 mg PO DAILY Qty: 30 RF: 0 Continued cyclobenzaprine 10 mg tablet 1 tab PO BEDTIME RF: 0 citalopram 20 mg tablet 1 tab PO DAILY RF: 0 lisinopril 10 mg tablet 1 tab PO DAILY RF: 0 omeprazole 20 mg capsule,delayed release(DR/EC) 1 cap PO BID RF: 0 sulfamethoxazole-trimethoprim 800-160 mg tablet 1 tab PO BID Qty: 14 RF: 0 Discontinued cephalexin 500 mg tablet 1 tab PO TID RF: 0 Discharge Orders: Discharge Order (Routine); Ordered 08/29/21 Ordered By: Taj Hurtado Diet: advance to usual diet Activity on Discharge: As tolerated Stand Alone Forms: Patient Portal Discharge page, Work/School Release Care Plan Goals: reocvery Health Concerns: facial abscess and cellulitis Plan of Treatment: 7 more days of bactrim, return for worsening erythema, pain, swelling, fever Assessment: see above
[2021-08-29] MEDS: 0.9 % Sodium Chloride Flush 3 ML SYRINGE IVFLUSH (08:45)
[2021-08-29] MEDS: Nicotine 21 MG PATCH.TD24 TRANSDERMA (08:45)
[2021-08-29 08:46] VITALS: BP 160/90; PULSE 83
[2021-08-29] MEDS: amLODIPine Besylate 10 MG TABLET PO (08:46)
[2021-08-29] MEDS: Escitalopram Oxalate 10 MG TABLET PO (08:46)
[2021-08-29] MEDS: Acetaminophen 325 MG TABLET 650 MG PO (08:46)
[2021-08-29] MEDS: lisinopriL 10 MG TABLET PO (08:46)
--- NOTE | 2021-08-29 08:56 | MHC.CM.PN ---
PATIENT IS DISCHARGED HOME - SELF CARE. HER CAR IS IN [address]. RN AWARE OF PLAN.
[2021-08-29 09:09] LABS: Creatinine Clr Calc Pharmacy 93.8; Estimated Glomerular Filt Rate > 60
[2021-08-29 11:29] VITALS: BP 186/97; PULSE 92; RESP 18; TEMP 36.1; O2SAT 97
[2021-08-29 11:49] VITALS: BP 160/90
[2021-08-29] MEDS: vancomycin HCL 1,500 MG in 0.9 % Sodium Chloride 500 ML 333.33 MG IV (12:33)
[2021-08-29] MEDS: Enoxaparin Sodium 40 MG/0.4 ML SYRINGE SUBCUT (12:56)
== END 2021-08-29 14:20 | disposition home or self-care (01) | DRG 383 ==
LOC: HO.ED 08-26 12:17 → HO.EDOVER 08-26 12:21 → HO.S3 08-26 19:57
PROVIDERS: Admitting Provider Hospitalist; Emergency Provider Emergency Medicine Emergency Medical Services; PCP Internal Medicine; Visit Provider Internal Medicine
DX: L02.01 Cutaneous abscess of face (principal); I10 Essential (primary) hypertension; L03.211 Cellulitis of face; K21.9 Gastro-esophageal reflux disease without esophagitis; F17.210 Nicotine dependence, cigarettes, uncomplicated; Z20.822 Contact with and (suspected) exposure to COVID-19; Z71.6 Tobacco abuse counseling; Z79.899 Other long term (current) drug therapy
CPT/HCPCS: 36415; 70491; 80048; 80053; 80202; 82565; 83605; 85025; 85027; 85652; 86140; 87040; 87071; 87077; 87186; 87205; 87635; 93005; 99285; J0696; J1650; J1885; J2270; J2405; J2543; J3370; Q9967